=== PATIENT | male | born 1950 | race Caucasian/White ===

== ENCOUNTER 2023-04-21 15:20 | Emergency (ER) | payer OTHER, SELFPAY ==
--- NOTE | 2023-04-21 15:27 | ED.EYEPROB ---
HPI - Eye Problem General Chief complaint: Eye Problems Stated complaint: Eye Problem Source: patient and RN notes reviewed History of Present Illness HPI Narrative: 72 yo M presents to urgent care with complaints of bilateral eye swelling that he first noticed when he woke up this am. Pt states the eyes were more swollen this morning and have improved but continue to be puffy. Denies any itchiness, visual disturbance, pain, FB sensation, or drainage from the eyes. Pt does not wear contact lenses. Pt does admit to helping his son-in-law yesterday with landscaping and was moving a lot of brush. Related Data Home Medications Medication Instructions Recorded Confirmed amlodipine 10 mg tablet 10 mg PO DAILY 04/21/23 04/21/23 aspirin 81 mg capsule 81 mg PO DAILY 04/21/23 04/21/23 atorvastatin 20 mg tablet 20 mg PO DAILY 04/21/23 04/21/23 bupropion HCl 150 mg 24 hr tablet, 150 mg PO DAILY 04/21/23 04/21/23 extended release celecoxib 200 mg capsule 200 mg PO DAILY 04/21/23 04/21/23 Allergies Allergy/AdvReac Type Severity Reaction Status Date / Time No Known Allergies Allergy Verified 04/21/23 15:38 Review of Systems Review of Systems: CONSTITUTIONAL: Denies fever, chills, or sweats. EYES: Denies visual changes, redness, or discharge. Reports bilateral eye swelling ENT: Denies otalgia and sore throat CARDIOVASCULAR: Denies chest pain, palpitations, or edema. RESPIRATORY: Denies cough or dyspnea. GASTROINTESTINAL: Denies abdominal pain, nausea, vomiting, or diarrhea. GENITOURINARY: Denies dysuria or hematuria. SKIN: Denies rash or itching. MUSCULOSKELETAL: Denies back pain, joint pain, or myalgia. NEUROLOGIC: Denies headache, numbness, or weakness. Pertinent positives per HPI. PMFSH Comments At the time of my signature, I reviewed and agree with the nursing past medical, surgical, social, and family history. There is no relevant family history pertinent to the patient complaint. Exam Narrative: GENERAL: This is a well-nourished, well-developed patient, in no apparent distress. HEAD: normocephalic, atraumatic. EYES: PERRL. Sclera clear/white. Vision is grossly intact. Edematous lower orbits and bilateral upper lids. no drainage. no rash or erythema. EARS: External ears normal, auditory canals clear and without drainage, TMs normal without perforation. Hearing grossly intact. NOSE: External nose normal with no obvious nasal discharge, nares without redness, no rhinorrhea. THROAT: Mucous membranes moist, posterior pharynx clear. NECK: Neck supple, non-tender without lymphadenopathy, masses or thyromegaly. CARDIOVASCULAR: Regular rate RESPIRATORY: No respiratory distress SKIN: warm, intact with no suspicious lesions or rash, good texture and turgor. NEURO: awake, alert, and oriented to person, place and time. There were no obvious focal neurologic abnormalities. Course Course Level of Care: Express Care Visit Vital Signs Vital signs: Vital Signs Temperature 98.1 F 04/21/23 15:31 Pulse Rate 77 04/21/23 15:31 Respiratory Rate 18 04/21/23 15:31 Blood Pressure 153/77 H 04/21/23 15:31 Pulse Oximetry 98 04/21/23 15:31 Oxygen Delivery Room Air 04/21/23 15:31 Temperature 98.1 F 04/21/23 15:31 Pulse Rate 77 04/21/23 15:31 Respiratory Rate 18 04/21/23 15:31 Blood Pressure 153/77 H 04/21/23 15:31 Pulse Oximetry 98 04/21/23 15:31 Oxygen Delivery Room Air 04/21/23 15:31 Reviewed MDM - Eye Problem MDM Narrative Medical decision making narrative: Take steroids as directed. If you develop any new or worsening symptoms, go to the ER. Differential Diagnosis Differential diagnosis: Likely conjunctivitis, periorbital cellulitis and other (allergic reaction) Critical Care Time Critical Care Time Critical Care Time: No Discharge Plan Discharge Clinical Impression: Allergic reaction Qualifiers: Encounter type: initial encounter Qualified Code(s): T78.40XA - Al
[2023-04-21 15:31] VITALS: BP 153/77; PULSE 77; RESP 18; TEMP 36.7; O2SAT 98
== END 2023-04-21 15:45 | disposition home or self-care (01) ==
PROVIDERS: Emergency Provider Nurse Practitioner Family; PCP Internal Medicine
DX: T78.40XA Allergy, unspecified, initial encounter (principal); H05.223 Edema of bilateral orbit; H02.844 Edema of left upper eyelid; H02.841 Edema of right upper eyelid; E78.00 Pure hypercholesterolemia, unspecified; I10 Essential (primary) hypertension; Z96.653 Presence of artificial knee joint, bilateral; I25.10 Atherosclerotic heart disease of native coronary artery without angina pectoris; Z95.1 Presence of aortocoronary bypass graft
CPT/HCPCS: 99213; G0463